=== PATIENT | male | born 1960 | race Caucasian/White ===

== ENCOUNTER 2018-06-11 21:58 | Emergency (ER) | payer MEDICAID ==
[~2018-06-11] VITALS: Wt 67.0 kg
[~2018-06-11 21:58] MED LIST: METF100010
[2018-06-11 22:01] VITALS: Wt 67.0 kg
[2018-06-11] MEDS ORDERED: BENA40TA56 PO (23:14)
[2018-06-11] MEDS ORDERED: METO25TA4 PO (23:14)
[2018-06-11] MEDS ORDERED: POTASSIUM CHLORIDE (SR) 20 MEQ TAB PO STA (23:22)
[2018-06-11] MEDS ORDERED: DEXTROSE 50% 50 ML SYRINGE IV ONE (23:30)
--- NOTE | 2018-06-12 00:22 | ERD ---
ER Documentation Chief Complaint Chief Complaint BIB family for PATRIA, accucheck ~40mg/dl per Gaye GREER HPI This is a 57-year-old male with a history of type 1 diabetes who presents to the emergency room for evaluation of altered mental status. According to the patient's family members the patient has been more weak than normal and they brought the patient to the emergency room. On evaluation this patient was found to have a blood sugar of less than 50. The patient was given a D50 with complete resolution of his symptoms. The patient did state that he took his insulin however he did not eat enough food. The patient has no complaints at this time. ROS All systems reviewed and are negative except as per history of present illness. Medications Home Meds Reported Medications Benazepril Hcl* (Benazepril Hcl*) 40 Mg Tablet, 40 MG PO QAM, #30 TAB 06/11/18 Metoprolol Tartrate* (Lopressor*) 25 Mg Tablet, 75 MG PO BID, #180 TAB 06/11/18 Discontinued Reported Medications Metformin Hcl* (Metformin Hcl*) 1,000 Mg Tablet 02/24/10 Allergies Allergies: Coded Allergies: No Known Allergy (Unverified , 06/11/18) PMhx/Soc History of Surgery: No Anesthesia Reaction: No Hx Neurological Disorder: No Hx Respiratory Disorders: No Hx Cardiac Disorders: No Hx Psychiatric Problems: No Hx Miscellaneous Medical Probl: No Hx Alcohol Use: No Hx Substance Use: No Hx Tobacco Use: No Smoking Status: Never smoker Physical Exam Vitals Vital Signs Date Temp Pulse Resp B/P (MAP) Pulse Ox O2 O2 Flow FiO2 Time Delivery Rate 06/11/18 95 18 203/106 100 Room Air 23:15 (138) 06/11/18 97.4 87 20 172/99 95 22:01 (123) Physical Exam Const: No acute distress Head: Atraumatic Eyes: Normal Conjunctiva ENT: Normal External Ears, Nose and Mouth. Neck: Full range of motion. No meningismus. Resp: Clear to auscultation bilaterally Cardio: Regular rate and rhythm, no murmurs Abd: Soft, non tender, non distended. Normal bowel sounds Skin: No petechiae or rashes Back: No midline or flank tenderness Ext: No cyanosis, or edema Neur: Awake and alert Psych: Normal Mood and Affect Result Diagram: 06/11/18223106/11/182231 Results 24 hrs Laboratory Tests Test 06/11/18 22:13 06/11/18 22:32 06/11/18 23:18 06/12/18 00:16 Bedside Glucose 164 mg/dL 206 mg/dL 249 mg/dL White Blood Count 5.5 10^3/ul Red Blood Count 5.01 10^6/ul Hemoglobin 13.8 g/dl Hematocrit 42.7 % Mean Corpuscular 85.2 fl Volume Mean Corpuscular 27.5 pg Hemoglobin Mean Corpuscular 32.3 g/dl Hemoglobin Concent Red Cell 13.5 % Distribution Width Platelet Count 235 10^3/UL Mean Platelet 11.2 fl Volume Immature 0.200 % Granulocytes % Neutrophils % 60.7 % Lymphocytes % 27.3 % Monocytes % 9.8 % Eosinophils % 1.5 % Basophils % 0.5 % Nucleated Red 0.0 /100WBC Blood Cells % Immature 0.010 10^3/ul Granulocytes # Neutrophils # 3.3 10^3/ul Lymphocytes # 1.5 10^3/ul Monocytes # 0.5 10^3/ul Eosinophils # 0.1 10^3/ul Basophils # 0.0 10^3/ul Nucleated Red 0.0 10^3/ul Blood Cells # Urine Color STRAW Urine Clarity CLEAR Urine pH 7.0 Urine Specific 1.008 Spencer Urine Ketones TRACE mg/dL Urine Nitrite NEGATIVE mg/dL Urine Bilirubin NEGATIVE mg/dL Urine Urobilinogen NEGATIVE mg/dL Urine Leukocyte NEGATIVE Joshua/ul Esterase Urine Microscopic 5 /HPF RBC Urine Microscopic 0 /HPF WBC Urine Bacteria FEW /HPF Urine Hemoglobin 1+ mg/dL Urine Glucose 2+ mg/dL Urine Total 2+ mg/dl Protein Sodium Level 141 mmol/L Potassium Level 2.8 mmol/L Chloride Level 96 mmol/L Carbon Dioxide 38 mmol/L Level Anion Gap 7 Blood Urea 20 mg/dl Nitrogen Creatinine 1.92 mg/dl Est Glomerular 37 mL/min Filtrat Rate mL/min Glucose Level 173 mg/dl Calcium Level 8.9 mg/dl Total Bilirubin 0.2 mg/dl Direct Bilirubin 0.00 mg/dl Indirect Bilirubin 0.2 mg/dl Aspartate Amino 28 IU/L Transf (AST/SGOT) Alanine 14 IU/L Aminotransferase ( ALT/SGPT) Alkaline 99 IU/L Phosphatase Total Protein 7.7 g/dl Albumin 3.8 g/dl Globulin 3.90 g/dl Albumin/Globulin 0.97 Ratio Lipase 46 U/L Current Medications Medications Dose Sig/Tabitha Start Time Status Last (Trade) Ordered Route PRN Stop Time Admin Dose Reason Admin Potassium 40 meq ONCE STAT 06/11/18 DC 06/11/18 Chloride PO 23:22 23:33 (Klor-Con 20) 06/11/18 23:23 Dextrose 50 ml ONCE ONCE 06/11/18 DC (D50w IV 23:30 Syringe) 06/11/18 23:31 Procedures/MDM This 57-year-old male presents to the emergency room for evaluation of altered mental status. He was found to be hypoglycemic upon initial evaluation was given D50. This patient's symptoms are completely resolved. He did state that he took his insulin and did not eat properly like he normally does. The patient is not taking any oral antihyperglycemic agents. He is not on any long-acting insulin. The patient was given complex carbohydrates in the emergency room. He was observed for 2 hours with every hour glucose checks. The patient has not become hypo-glycemic. His lab work does show mild hypokalemia which is likely secondary to his insulin administration however the patient was a supplemented p.o. potassium as well. The patient is here with his and his family members who do feel comfortable taking the patient home. The patient will be discharged at this time with strict return precautions. Departure Diagnosis: Primary Impression: Hypoglycemia Additional Impressions: Hypokalemia Insulin reaction, improper use of drug Condition: CHI Galicia DO Jun 12, 2018 00:22
[2018-06-12 00:25] VITALS: BP 195/100; PULSE 98; RESP 23
== END 2018-06-12 00:46 | disposition home or self-care (01) ==
LOC: E/R 21:58
DX: E10.649 Type 1 diabetes mellitus with hypoglycemia without coma (principal); E87.6 Hypokalemia; T38.3X5A Adverse effect of insulin and oral hypoglycemic [antidiabetic] drugs, initial encounter
CPT/HCPCS: 36415; 80053; 81001; 82962; 83690; 85025; Z7502; Z7610